=== PATIENT | male | born 1995 | race Caucasian/White ===

== ENCOUNTER 2018-11-21 13:48 | Emergency (ER) | payer MEDICAID ==
[~2018-11-21] VITALS: Ht 167.6 cm; Wt 57.2 kg
[2018-11-21 14:29] VITALS: BP 119/68
--- NOTE | 2018-11-21 14:32 | NUR ---
PT TO WAIT IN ER LOBBY. [id number]. VSS
--- NOTE | 2018-11-21 16:08 | NUR ---
BIB SELF. AAO X4 C/O BILATERAL INGROWN TOE NAILS X 2 WEEKS AGO. PT STATES PAIN TO LEFT BIG TOE EXACERBATES WHEN MOVING AND WALKING 10/10. TENDER TO TOUCH, +CMS, NO DISCHARGE, NO REDNESS NOTED TO LEFT BIG TOE. PT HAS STEADY GAIT. ER TO EVALUATE PT.
--- NOTE | 2018-11-21 16:08 | NUR ---
PT TO ER BED 6
--- NOTE | 2018-11-21 19:09 | NUR ---
Pt report given to AISHWARYA FONTANEZ. Transfer of care at this time.
--- NOTE | 2018-11-21 19:51 | NUR ---
Dr. Sebastian examining patient.
[2018-11-21 20:05] VITALS: BP 115/78
--- NOTE | 2018-11-21 20:05 | NUR ---
PT DISCHARGED WITH PAPERWORK. RX KELFEX. EDUCATED PT REGARDING MEDICATION AND SIDE EFFECTS. EDUCATED PT REGARDING DISCHARGE DIAGNOSIS. PT VERBALIZED UNDERSTANDING OF TEACHING. TOLD PT TO FOLLOW UP WITH PCP AND WHEN TO RETURN TO ED.
== END 2018-11-21 20:05 | disposition home or self-care (01) ==
LOC: MED 13:48
DX: L60.0 Ingrowing nail (principal)
CPT/HCPCS: 99283